=== PATIENT | male | born 1975 | race Caucasian/White ===

== ENCOUNTER 2021-12-05 14:11 | Outpatient (REF) | payer OTHER, SELFPAY ==
[2021-12-05 15:18] LABS: Influenza A PCR NEGATIVE (Negative); Influenza B PCR NEGATIVE (Negative); Resp Syncy Virus RNA Qual PCR NEGATIVE (Negative); SARS COV2 PCR INHOUSE POSITIVE (Negative)
== END 2021-12-05 14:12 | disposition home or self-care (01) ==
LOC: HO.LNP 14:11
PROVIDERS: Visit Provider Physician Assistant
DX: Z20.822 Contact with and (suspected) exposure to COVID-19 (principal); B34.9 Viral infection, unspecified; R76.8 Other specified abnormal immunological findings in serum
CPT/HCPCS: 0241U

== ENCOUNTER 2023-08-13 09:08 | Outpatient (AMB) | payer OTHER, SELFPAY ==
--- NOTE | 2023-08-13 10:41 | AM.OFFWIN_ITS ---
Intake Vital Signs 08/13/23 10:48 Weight 218 lb BP 130/90 H Blood Pressure Location Rt brachial Position Sitting Pulse 93 Pulse Source Pulse Oximeter Temp 99.6 F Temp Source Temporal Artery Scan Pulse Oximetry (%) 98 Oxygen Delivery Method Room Air Intake Visit Reasons: EP, + Covid, cough, fever ([phone]) Intake Note: Patient here because he tested positive for covid on saturday with a at home test. Has a cough, runny nose, bodyaches, cough, and fevers. 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 He tested positive for COVID 2 days ago. Patient is reporting symptoms of sinus congestion and postnasal drip. He would like to know if he is a candidate to receive Paxlovid. [facility] Medical History (Updated 08/13/23 @ 11:16 by Joel Rice MD) History of GI bleed Aortic stenosis GERD (gastroesophageal reflux disease) Surgical History (Updated 02/28/23 @ 14:23 by Shala Sylvester MD) Esophageal tear History of rhinoplasty H/O aortic valve replacement Family History (Updated 02/28/23 @ 14:22 by Shala Sylvester MD) Father Myocardial infarct CVA (cerebral vascular accident) Social History (Updated 02/28/23 @ 14:22 by Shala Sylvester MD) Housing: House Alcohol intake: current Patient Tobacco Use Status: Never used Tobacco service: No Current occupational status: employed Current occupational exposures/hazards: No Cognitive needs: No Hearing needs: No Vision needs: No Physical Exam Vital Signs: Last Vital Signs Temp 99.6 F 08/13/23 10:48 Pulse 93 08/13/23 10:48 BP 130/90 H 08/13/23 10:48 Pulse Ox 98 08/13/23 10:48 Oxygen Delivery Method Room Air 08/13/23 10:48 Const General: cooperative and healthy appearing Nutritional Appearance: well nourished Orientation/consciousness: patient oriented x3 Limitations: no limitations HEENT Head: Yes normal to inspection Eyes General: appearance normal, both eyes and all related structures Neck Neck: Yes normal visual inspection Chest Chest palpation & inspection: normal palpation of entire chest wall Resp Effort & Inspection: normal respiratory effort Neuro General: patient oriented x3 Assessment & Plan Assessment & Plan (1) Upper respiratory tract infection: Code(s): J06.9 - Acute upper respiratory infection, unspecified Qualifiers: URI type: unspecified viral URI Qualified Code(s): J06.9 - Acute upper respiratory infection, unspecified Plan: Note for work given. No antibiotics or Paxlovid needed. Reassurance. Coding Level of Care Code Est Pt Level 3 (00889) Diagnoses Viral upper respiratory tract infection J06.9 URI type: unspecified viral URI
[2023-08-13 10:48] VITALS: BP 130/90; PULSE 93; TEMP 37.6; O2SAT 98
== END 2023-08-13 11:32 | disposition home or self-care (01) ==
PROVIDERS: PCP Internal Medicine; Visit Provider Internal Medicine
DX: J06.9 Acute upper respiratory infection, unspecified (principal)
CPT/HCPCS: 99213

== ENCOUNTER 2024-01-06 09:00 | Outpatient (AMB) | payer OTHER, SELFPAY ==
[2024-01-06 10:02] VITALS: BP 170/110; PULSE 87; TEMP 36.5; O2SAT 97; BMI 33.2
--- NOTE | 2024-01-06 10:02 | AM.OFFWIN_ITS ---
Intake Vital Signs 01/06/24 10:02 Height 5 ft 9 in Weight 102.058 kg BMI 33.2 BP 170/110 H Blood Pressure Location Lt brachial Position Sitting Pulse 87 Pulse Source Pulse Oximeter Temp 97.7 F Temp Source Temporal Artery Scan Pulse Oximetry (%) 97 Oxygen Delivery Method Room Air Intake Visit Reasons: EP throat fever mucous [phone] Intake Note: pt is here today for throat fever mucous started 1 week ago Patient Tobacco Use Status: Never used Tobacco Allergies No Known Allergies [No Known Allergies*] Allergy (Verified 01/06/24 10:02) Do you need a note to return to daycare/school/sports/work: Yes HPI HPI Comments History of Present Illness Details 48-year-old male presents with complaint s of cough, fatigue, malaise, subjective fevers and chills, sore throat ongoing for about a week not improving. Patient reports he is coughing up thick yellow phlegm. Just does not feel well. Denies sick contacts. He has tried supportive measures at home with little to no relief. Denies chest pain, shortness breath, nausea, vomiting, headache, vision changes, dizziness, weakness. Physical exam erythematous posterior pharynx. History and physical exam concerning for viral illness versus bronchitis versus strep pharyngitis. Unlikely peritonsillar abscess, retropharyngeal abscess, threat to airway. Unlikely meningitis, encephalitis ACS, PE, PNA Will discharge patient with antibiotics, prednisone. Educated patient on diagnosis and treatment plan, answered all question, patient verbalizes understanding. At this time patient will be discharged home, advised to return with new or worsening symptoms. Educated on worrisome signs and symptoms and when to return. At this time I feel comfortable discharge home. [facility] Medical History History of GI bleed Aortic stenosis GERD (gastroesophageal reflux disease) Surgical History Esophageal tear History of rhinoplasty H/O aortic valve replacement Family History Father Myocardial infarct CVA (cerebral vascular accident) Social History Housing: House Alcohol intake: current Patient Tobacco Use Status: Never used Tobacco service: No Current occupational status: employed Current occupational exposures/hazards: No Cognitive needs: No Hearing needs: No Vision needs: No Review of Systems Const All systems reviewed & are unremarkable except as noted in HPI and below Physical Exam Vital Signs: Last Vital Signs Temp 97.7 F 01/06/24 10:02 Pulse 87 01/06/24 10:02 BP 170/110 H 01/06/24 10:02 Pulse Ox 97 01/06/24 10:02 Oxygen Delivery Method Room Air 01/06/24 10:02 BMI result Body Mass Index 33.2 Vital signs significant for hypertension however patient not feeling well on is reporting pain this is likely secondary to viral illness. No signs of intracranial hemorrhage, stroke, posterior stroke Appearance: Alert.? Oriented X3.? No acute distress.? Head: Normocephalic, atraumatic, no step-offs or deformities Eyes: Pupils equal, round and reactive to light.? ENT: Pharynx posterior pharynx with erythema. No edema. Midline uvula. Speaking in full sentences controlling secretions well. No abscess or exudate.? Neck: Normal inspection.? Neck supple.? CVS: Normal heart rate and rhythm.? Pulses normal.? Respiratory: No respiratory distress.? Breath sounds normal.? Abdomen: Soft and nontender.? Skin: Skin warm and dry.? Normal skin color.? Normal skin turgor.? Extremities: No lower extremity edema.? No calf ttp. 5/5 strength to bilateral upper and lower extremities Neuro: Oriented X 3.? No motor deficit.? No sensory deficit. CN 2-12 intact Assessment & Plan Assessment & Plan (1) Bronchitis: Code(s): J40 - Bronchitis, not specified as acute or chronic (2) Pharyngitis: Code(s): J02.9 - Acute pharyngitis, unspecified Plan Take your medications as prescribed. If you were prescribed antibiotics today, it is important that you take your medication to their entirety, do not skip any doses, do not finish them early. Follow-up with your primary care provider this week. Return to the emergency department with new or worsening symptoms. Such as fevers, chills, chest pain, shortness of breath, nausea, vomiting, dizziness, headache, vision changes, lethargy In case of emergency call 911 Medications: New prednisone 40 mg (2 x 20 mg) PO DAILY 5 days 10 tabs 0RF doxycycline hyclate 100 mg PO BID 7 days 14 caps 0RF Coding Level of Care Code Est Pt Level 3 (44110) Diagnoses Bronchitis J40 Pharyngitis J02.9
== END 2024-01-06 10:41 | disposition home or self-care (01) ==
PROVIDERS: PCP Internal Medicine; Visit Provider Physician Assistant
DX: J40 Bronchitis, not specified as acute or chronic (principal); J02.9 Acute pharyngitis, unspecified
CPT/HCPCS: 99213

== ENCOUNTER 2024-01-17 09:15 | Outpatient (AMB) | payer OTHER, SELFPAY ==
[2024-01-17 10:03] VITALS: BP 130/80; PULSE 76; TEMP 36.3; O2SAT 98; BMI 33.5
--- NOTE | 2024-01-17 10:03 | AM.OFFWIN_ITS ---
Intake Vital Signs 01/17/24 10:03 Height 5 ft 9 in Weight 227 lb BMI 33.5 BP 130/80 Blood Pressure Location Lt brachial Position Sitting Pulse 76 Pulse Source Pulse Oximeter Temp 97.4 F Temp Source Temporal Artery Scan Pulse Oximetry (%) 98 Oxygen Delivery Method Room Air Intake Visit Reasons: EST/coughing post strep([phone]) Intake Note: pt is here today for cough post strep Patient Tobacco Use Status: Never used Tobacco Allergies No Known Allergies [No Known Allergies*] Allergy (Verified 01/17/24 10:04) Do you need a note to return to daycare/school/sports/work: Yes HPI HPI Comments History of Present Illness Details This is a 48-year-old male who presents to the walk-in clinic complaining of a persistent cough. Patient was evaluated at the walk-in clinic on 01/06/2024 and he was diagnosed with acute bronchitis and acute pharyngitis. He was treated with prednisone and doxycycline. He states that his symptoms significantly improved but never fully resolved. He went back to work on 01/13/2024 but his symptoms worsened again and he has been out of work for the rest of the week. Patient states he is feeling significantly better and wanted to go back to work today but his work told him he needed a work note prior to returning. Patient is requesting a work note to return to work on Saturday January 20, 2024. [facility] Medical History History of GI bleed Aortic stenosis GERD (gastroesophageal reflux disease) Surgical History Esophageal tear History of rhinoplasty H/O aortic valve replacement Family History Father Myocardial infarct CVA (cerebral vascular accident) Social History Housing: House Alcohol intake: current Patient Tobacco Use Status: Never used Tobacco service: No Current occupational status: employed Current occupational exposures/hazards: No Cognitive needs: No Hearing needs: No Vision needs: No Review of Systems Const All systems reviewed & are unremarkable except as noted in HPI and below Reports no additional complaints Eyes Reports no additional complaints ENT Reports no additional complaints Card Reports no additional complaints Resp Reports no additional complaints GI Reports no additional complaints Reports no additional complaints Musc Reports no additional complaints Skin/Breast Reports system reviewed and no additional complaints, except as documented Neuro Reports no additional complaints Psych Reports no additional complaints Endo Reports no additional complaints Jm/Lymph Reports no additional complaints Aller/Immun Reports no additional complaints Physical Exam Vital Signs: Last Vital Signs Temp 97.4 F 01/17/24 10:03 Pulse 76 01/17/24 10:03 BP 130/80 01/17/24 10:03 Pulse Ox 98 01/17/24 10:03 Oxygen Delivery Method Room Air 01/17/24 10:03 BMI result Body Mass Index 33.5 Const Other: Vital signs reviewed. Constitutional: Non-toxic appearing. No acute distress. Well-developed and well-nourished. HEENT: Normocephalic and atraumatic. Skin: Warm and dry. No rashes or lesions noted. Neck: Full and painless range of motion. No cervical lymphadenopathy. Cardio: Regular rate and rhythm. No murmurs, gallops, or rubs. No lower extremity edema. No JVD. Pulmonary: No respiratory distress. No accessory muscle usage. Clear to auscultation bilaterally without wheezing, crackles, or rhonchi. Gastrointestinal: Soft, nontender, and nondistended in all 4 quadrants. Musculoskeletal: Normal range of motion in joints throughout the body. No deformity or other signs of injury. Neuro: Alert and oriented x4. Cranial nerves 2-12 grossly intact. No focal deficits appreciated. Psych: Normal mood and affect. Assessment & Plan Assessment & Plan (1) Post-viral cough syndrome: Code(s): R05.8 - Other specified cough Plan: This is a 48-year-old male who is presenting to the walk-in clinic complaining of a persistent cough following a diagnosis of acute bronchitis/acute pharyngitis. Patient states he is feeling significantly better he would like to return to work; however, he needs a work note in order to return. Patient was given a work note to return on Saturday January 20, 2024. He was also given a prescription for p.o. benzonatate 200 mg 3 times daily as needed for persistent cough. Patient was extremely appreciative. Patient was advised to follow-up here or proceed to the emergency room if he were to develop persistent or worsening symptoms. Patient verbalizes understanding and he is in agreement with the plan. Medications: New benzonatate 200 mg PO TID PRN 14 caps 0RF cough Coding Level of Care Code Est Pt Level 3 (59798) Diagnoses Post-viral cough syndrome R05.8
== END 2024-01-17 11:05 | disposition home or self-care (01) ==
PROVIDERS: PCP Internal Medicine; Visit Provider Physician Assistant Medical
DX: R05.8 Other specified cough (principal)
CPT/HCPCS: 99213

== ENCOUNTER 2025-03-25 14:46 | Outpatient (AMB) | payer OTHER, SELFPAY ==
[2025-03-25 14:51] VITALS: BP 188/96; PULSE 94; RESP 18; TEMP 37.4; O2SAT 98; BMI 30.9
--- NOTE | 2025-03-25 14:51 | A.OFFPC_ITS ---
Vital Signs 03/25/25 14:51 Height 5 ft 9 in Weight 209 lb 9.6 oz BMI 30.9 BP 188/96 H Blood Pressure Location Lt brachial Position Sitting Respiration 18 Pulse 94 Pulse Source Pulse Oximeter Temp 99.3 F Temp Source Oral Pulse Oximetry (%) 98 Oxygen Delivery Method Room Air Intake Visit Reasons: PE [employer] Manager Required: No Accompanied by: Self / Same As Patient Allergies No Known Allergies [No Known Allergies*] Allergy (Verified 03/25/25 15:08) Medication List - Last Reconciled 03/25/25 by ELANA Kitchen lisinopril 40 mg PO DAILY warfarin 8 mg (2 x 4 mg) PO DAILY 30 days Tobacco use date assessed: 03/25/25 Dental Screening Dental Screen Date: 03/25/25 Did you have a dental visit in the last 12 months?: Yes Did you have a dental problem in the last 6 months where you did not have access to dental care?: No Was dental information given to patient?: Patient has dentist HPI PE HPI Details Dentist: up to date Eye: Snellen: Right: Left: Corrected vision: STI screening: Colonoscopy: cologaurad Pap Smer:n/a PHQ-9: Flu: decline COVID: x2 Tdap: will give tetanus shot in office Diet: eating less, fast intermittently Exercise: almost every daay 15-20 minutes and take couple days off intermittently PFSH Medical History History of GI bleed Aortic stenosis GERD (gastroesophageal reflux disease) Surgical History Esophageal tear History of rhinoplasty H/O aortic valve replacement Family History Father Myocardial infarct CVA (cerebral vascular accident) Social History Housing: House Alcohol intake: current Patient Tobacco Use Status: Never used Tobacco e-Cigarette/Vaping Use: Never Used Second Hand Smoke Exposure: Yes service: No Current occupational status: employed 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 1. Little interest or pleasure in doing things: not at all 2. Feeling down, depressed, or hopeless: not at all 3. Trouble falling or staying asleep, or sleeping too much: not at all 4. Feeling tired or having little energy: not at all 5. Poor appetite or overeating: not at all 6. Feeling bad about yourself - or that you are a failure or have let yourself or your family down: not at all 7. Trouble concentrating on things, such as reading the newspaper or watching television: not at all 8. Moving or speaking so slowly that other people could have noticed. Or the opposite - being so fidgety or restless that you have been moving around a lot more than usual: not at all 9. Thoughts that you would be better off or of hurting yourself in some way: not at all Total score: 0 Depression Screening Interpretation: Negative Depression Screening Done: Yes 05681 - PHQ-9 Billing: Yes Source: Developed by Drs. Johnathon Adams, Rosa Johnston, Elton Tsang and colleagues, with an educational lorie from [employer]. Thrive Questionnaire Date Thrive assessed: 03/25/25 I am a: Patient What is your living situation today?: I have a steady place to live Within the past 12 months, did the food you bought not last and you didn't have the money to get more?: I choose not to answer this question Within the past 12 months, did you worry whether your food would run out before you got money to buy more?: I choose not to answer this question Do you have trouble paying for medicines?: I choose not to answer this question Do you have trouble getting transportation to medical appointments?: No Do you have trouble paying your heating and electricity bill?: I choose not to answer this question Do you have trouble taking care of your child, family member or friend?: No Do you have trouble with day-to-day activities such as bathing, preparing meals, shopping, managing finances, etc.?: No Are you currently unemployed and looking for a job?: No Are you interested in more education?: I choose not to answer this question Please select the resources that you would like help with: None Currently or been in a relationship where the following occur: No concerns reported THRIVE Score: 0 AUDIT C Alcohol Use Questionnaire (AUDIT-C) 1. How often do you have a drink containing alcohol?: 4 or more times a week 2. How many drinks containing alcohol do you have on a typical day when you are drinking?: 3 or 4 3. How often do you have six or more drinks on one occasion?: Weekly Total Score: 8 Score Reviewed/Action Taken: Yes LUCIO-7 AMB Questionnaire LUCIO-7 Date LUCIO - 7 assessed: 03/25/25 Feeling nervous, anxious, or on edge: 1 = Several days Not being able to stop or control worryin = Several days Worrying too much about different things: 1 = Several days Trouble relaxin = Not at all Being so restless that it is hard to sit still: 0 = Not at all Becoming easily annoyed or irritable: 0 = Not at all Feeling afraid as if something awful might happen: 1 = Several days Total LUCIO-7 score (0-4 normal; 5-9 mild; 10-14 moderate; 15-21 severe): 4 Source: Developed by Drs. Johnathon Adams, Rosa Johnston, Elton Tsang and colleagues, with an educational lorie from [employer]. LUCIO-7 Assessment Billing LUCIO-7 Assessment Tool: LUCIO-7 Assessment 97934 Physical exam (Primary Care) Vital Signs: Last Vital Signs Temp 99.3 F 03/25/25 14:51 Pulse 94 03/25/25 14:51 Resp 18 03/25/25 14:51 BP 188/96 H 03/25/25 14:51 Pulse Ox 98 03/25/25 14:51 Oxygen Delivery Method Room Air 03/25/25 14:51 BMI result Body Mass Index 30.9 Tobacco/Smoking Status: Tobacco use Status Tobacco use date assessed 03/25/25 03/25/25 14:54 Patient Tobacco Use Status Never used Tobacco 03/25/25 14:54 e-Cigarette/Vaping Use Never Used 03/25/25 14:54 PHQ-9: PHQ-9 Score PHQ-9: Total score 0 03/25/25 15:11 Depression Screening Interpretation: Negative Thrive Assessment: Date of Thrive Assessment Date Thrive assessed 03/25/25 03/25/25 14:54 Currently or been in a relationship where the following occur: No concerns reported Immunizations Boostrix Tdap 2.5 Lf unit-8 mcg-5 Lf/0.5 mL intramuscular syringe Performing Provider: ELANA Kitchen [facility] Administered by: Jemma Johnson CMA on 03/25/25 15:32 Dose Route Admin Location Dispensed Lot Number Expiration Date [facility] Draw Hand 0.5 mL IM Left Deltoid 0.5 mL [id number] 06/11/27 [id number] [employer] (acquired by [employer] in 2014) VIS Given Date VIS Provided VIS Publication Date 03/25/25 Single Vaccine 25 Eligibility Eligibility Date Funding Source Not [facility] Eligible 03/25/25 Private Coding Additional Codes LUCIO-7 Assessment Billing - LUCIO-7 Assessment Tool: LUCIO-7 Assessment 36683 ([id number]) PHQ-9 - 44692 - PHQ-9 Billing: Yes ([id number]) Assessment & Plan Assessment & Plan Orders: Orders TSH reflex Free T4 Today E78.00 - Pure hypercholesterolemia, unspecified, I10 - Essential (primary) hypertension, K21.9 - Gastro-esophageal reflux disease without esophagitis, M10.9 - Gout, unspecified, Z95.2 - Presence of prosthetic heart valve UA CC w/rflx Micro + Cult Today E78.00 - Pure hypercholesterolemia, unspecified, I10 - Essential (primary) hypertension, K21.9 - Gastro-esophageal reflux disease without esophagitis, M10.9 - Gout, unspecified, Z95.2 - Presence of prosthetic heart valve Uric Acid Today E78.00 - Pure hypercholesterolemia, unspecified, I10 - Essential (primary) hypertension, K21.9 - Gastro-esophageal reflux disease without esophagitis, M10.9 - Gout, unspecified, Z95.2 - Presence of prosthetic heart valve Vitamin D 25-OH Total Today E78.00 - Pure hypercholesterolemia, unspecified, I10 - Essential (primary) hypertension, K21.9 - Gastro-esophageal reflux disease without esophagitis, M10.9 - Gout, unspecified, Z95.2 - Presence of prosthetic heart valve TDaP Immunization Today Z23 - Encounter for immunization Complete Blood Count Auto Diff Today E78.00 - Pure hypercholesterolemia, unspecified, I10 - Essential (primary) hypertension, K21.9 - Gastro-esophageal reflux disease without esophagitis, M10.9 - Gout, unspecified, Z95.2 - Presence of prosthetic heart valve Comprehensive [place]. Panel Fast Today E78.00 - Pure hypercholesterolemia, unspecified, I10 - Essential (primary) hypertension, K21.9 - Gastro-esophageal reflux disease without esophagitis, M10.9 - Gout, unspecified, Z95.2 - Presence of prosthetic heart valve Lipid Panel Today E78.00 - Pure hypercholesterolemia, unspecified, I10 - Essential (primary) hypertension, K21.9 - Gastro-esophageal reflux disease without esophagitis, M10.9 - Gout, unspecified, Z95.2 - Presence of prosthetic heart valve Glucose Fasting Today E78.00 - Pure hypercholesterolemia, unspecified, I10 - Essential (primary) hypertension, K21.9 - Gastro-esophageal reflux disease without esophagitis, M10.9 - Gout, unspecified, Z95.2 - Presence of prosthetic heart valve Medications: New Boostrix Tdap (diphth,pertus(acell),tetanus) 0.5 mL IM ONCE 0.5 mL 0RF NS Z23 - Encounter for immunization carvedilol 12.5 mg PO BID 60 tabs 3RF
== END 2025-03-25 15:35 | disposition home or self-care (01) ==
LOC: HO.HMCH 14:46
PROVIDERS: PCP Internal Medicine
DX: Z23 Encounter for immunization (principal)

== ENCOUNTER → 2025-03-25 14:46 | Outpatient (BNVA) | payer OTHER, SELFPAY | PROVIDERS: PCP Internal Medicine | DX: Z00.00 Encounter for general adult medical examination without abnormal findings (principal); Z23 Encounter for immunization; M72.0 Palmar fascial fibromatosis [Dupuytren]; E78.00 Pure hypercholesterolemia, unspecified; I10 Essential (primary) hypertension; M1A.0220 Idiopathic chronic gout, left elbow, without tophus (tophi); K21.9 Gastro-esophageal reflux disease without esophagitis; Z79.899 Other long term (current) drug therapy; Z95.2 Presence of prosthetic heart valve | CPT/HCPCS: 90471; 90715; 96127 ==

== ENCOUNTER 2025-06-09 12:44 | Outpatient (AMB) | payer OTHER, SELFPAY ==
[2025-06-09 12:49] VITALS: BMI 30.9
--- NOTE | 2025-06-09 12:49 | MHC.OFFVIS ---
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 States his hands started to contract inwards about 15 years ago, he has no pain however when pressure is applied, he has discomfort. Denies numbness or tingling, however he has locking and catching in bilateral ring fingers. Patient states he has had no previous treatments. No EMG done. 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 He complains of contractures of his right ring finger & left ring & small fingers, with several cords forming in his hands. He says this has been present for ~15 years now. He is somewhat limited in the use of his hands by this. He denies any numbness, tingling, or prior treatment options. he has a Hx of Gout, CHF, and a heart valve replacement done in 2006. He is on Blood thinners. 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 Current occupational exposures/hazards: No Cognitive needs: No Hearing needs: No Vision needs: No Review of Systems Const All systems reviewed & are unremarkable except as noted in HPI and below Physical Exam Vital Signs: BMI result Body Mass Index 30.9 Const General: cooperative, healthy appearing and no acute distress Orientation/consciousness: patient oriented x3 HEENT Head: Yes normocephalic and Yes atraumatic Eyes EOM: EOMs intact bilaterally Resp Effort & Inspection: normal respiratory effort and able to speak in complete sentences Cardio Jugular venous distension: no JVD Skin General skin exam: turgor normal Rashes: no rashes Neuro General: patient oriented x3 Extrem Other: Evaluation of Bilateral Upper Extremity: The patient is alert, oriented, and in no acute distress sensation is normal to the tips of all digits Cap refill brisk ROM: He can bring his fingers closed to a fist Skin: No lacerations or abrasions. General: No Ecchymosis. No Erythema or evidence of infection. Left hand Dupuytrens: Cord extending from the thenar crease just distal to the carpal tunnel, out to the radial aspect of the thumb distal phalanx, not yet causing IP joint contracture Cord in 1st webspace, extending from the palmar digital crease of the thumb to the index finger. No significant contracture at present Dupuytrens nodule in the mid-palmar crease at the base of the middle finger, no contracture Ring: MCP 35/PIP 0 Central cord extending from mid-palm to ring finger proximal phalanx Small: MCP 45/PIP 0 Central cord extending from mid-palm to small finger PIP joint, with a large nodule over the proximal phalanx Right hand Dupuytrens: Early cord formation in the thenar mass of the thumb, no contracture yet Small finger: beginnings of a central cord extending from the palm, no contracture yet Ring: MCP 35/PIP 0, with a cord extending to the ring finger from the central palm Psych Appearance: grossly normal Affect: normal affect Attitude: cooperative Assessment & Plan Assessment & Plan (1) Dupuytren's contracture of right hand: Code(s): M72.0 - Palmar fascial fibromatosis [Dupuytren] Category: Medical (2) Dupuytren's contracture of left hand: Code(s): M72.0 - Palmar fascial fibromatosis [Dupuytren] Category: Medical (3) H/O aortic valve replacement: Comment: Aortic stenosis aortic valve replacement mechanical and ascending aortic aneurysm repair 2006 Dr. Loja, Dr. Koroma May 2018 echo EF 65% Dr. Koroma Code(s): Z95.2 - Presence of prosthetic heart valve Category: Surgical Plan Assessment & Plan: 1. Left ring finger Dupuytrens contracture MCP 35/PIP 0 2. Left small finger Dupuytrens contracture MCP 45/PIP 0 Significant nodule in the volar aspect of the proximal phalanx proximal to PIP joint 3. Left thumb Dupuytren's cord Causing some flexion at the MCP, and creating an IP flexion contracture, as patient has to bring thumb into some adduction to allow full extension at the IP joint. I educated him about this condition I had a long discussion with him concerning operative intervention He would like to take time to consider his options concerning surgery, and will follow up prn to discuss The risks and benefits of operative treatment were discussed with the patient and the patient wishes to proceed with surgery. These risks include, but are not limited to risk of damage to blood vessels, nerves, tendons, infection, recurrence, incomplete relief of preoperative symptoms, persistent pain, possible need for further surgery and the risks associated with regional blocks and anesthesia. All the patient's questions were answered. The plan is to proceed with the following operative procedures sometime in the next few months. 1. Left small finger partial Dupuytren's fasciectomy 2. Left ring finger partial Dupuytren's fasciectomy 3. Possible left thumb partial Dupuytren's fasciectomy all under general anesthesia with a block. He denies Diabetes, asthma, lung, kidney issues He has a Hx of CHF & a heart valve replacement done in 2006. He is on Warfarin. Discuss possible Cardiac clearance with anesthesia. 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 4. Right ring finger Dupuytrens contracture MCP 35/PIP 0 5. Right hand Dupuytrens disease Early cord formation extending to the thumb & small finger Please note that greater than 60 minutes was spent with this patient going over the history, evaluating the patient and radiographs, formulating possible treatment options, discussing them with the patient, and documenting the visit. Scribed for Elena Blair MD by Leon Noriega, director of medical review, on 06/09/25 at 1:25 PM, EST. Coding Level of Care Code New Pt Level 5 (04085) Diagnoses Dupuytren's contracture of right hand M72.0 Dupuytren's contracture of left hand M72.0 H/O aortic valve replacement Z95.2
== END 2025-06-09 14:05 | disposition home or self-care (01) ==
LOC: HO.HOS 12:44
PROVIDERS: PCP Internal Medicine; Visit Provider Orthopaedic Surgery
DX: M72.0 Palmar fascial fibromatosis [Dupuytren] (principal); Z95.2 Presence of prosthetic heart valve
CPT/HCPCS: 99205